=== PATIENT | male | born 1945 | race Caucasian/White ===

== ENCOUNTER → 2023-03-25 11:34 | Outpatient (REF) | payer MEDICARE, OTHER, SELFPAY | LOC: CLAB 11:34 | PROVIDERS: ATTENDING PHYSICIAN Surgery | DX: R97.20 Elevated prostate specific antigen [PSA] (principal) | CPT/HCPCS: 88305; 88344 ==

== ENCOUNTER → 2023-11-14 17:23 | Outpatient (REF) | payer MEDICARE, OTHER, SELFPAY | LOC: MRI 3T 17:23 | PROVIDERS: ATTENDING PHYSICIAN Surgery; FAMILY PHYSICIAN Nurse Practitioner Family | DX: R97.20 Elevated prostate specific antigen [PSA] (principal) | CPT/HCPCS: 72197; A9575 ==

== ENCOUNTER → 2024-11-12 08:24 | Outpatient (REF) | payer MEDICARE, OTHER, SELFPAY | LOC: MRI 3T 08:24 | PROVIDERS: ATTENDING PHYSICIAN Surgery | DX: C61 Malignant neoplasm of prostate (principal) | CPT/HCPCS: 72197; A9575 ==